=== PATIENT | female | born 1945 | race Caucasian/White ===

== ENCOUNTER 2025-03-23 10:07 | Emergency (ER) | payer MEDICARE ==
[2025-03-23] MEDS: Dexamethasone 4 MG/ML SDV INJECT ONE (11:25)
== END 2025-03-23 12:01 | disposition home or self-care (01) ==
LOC: JP.ED 10:07
DX: G58.8 Other specified mononeuropathies (principal); I10 Essential (primary) hypertension; E78.00 Pure hypercholesterolemia, unspecified; Z79.899 Other long term (current) drug therapy; Z90.49 Acquired absence of other specified parts of digestive tract
CPT/HCPCS: 64450; 99283; J0665; J1100